=== PATIENT | male | born 1995 | race Hispanic/Latino ===

== ENCOUNTER 2025-07-12 23:37 | Emergency (ER) | payer OTHER ==
[~2025-07-12] VITALS: Ht 177.8 cm; Wt 145.1 kg
[2025-07-12] MEDS ORDERED: IOHEXOL 350 MG/ML 100ML INFUS..BTL IV ONE (23:49)
[2025-07-13 00:08] LABS: CREATININE 0.8 mg/dL (0.5-1.3); GLOMERULAR FILTR. RATE CALC 124.0 mL/min (>90); GLUCOSE,RANDOM 110.0 mg/dL (70-105); SODIUM SERUM 139.0 mmol/L (136-145); UREA NITROGEN, BLOOD 10.0 mg/dL (7-18)
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
[2025-07-13 00:30] LABS: CREATINE KINASE, TOTAL 688.0 U/L (21-232)
[2025-07-13 00:37] LABS: IMMATURE GRANULOCYTE ABSOLUTE 0.13 K/uL (0-1); NUCLEATED RED BLOOD CELLS 0.0 % (0.0-0.19); PLATELET COUNT (AUTO) 399 K/uL (130-400); RED BLOOD CELL COUNT(AUTO) 4.75 MIL/uL (4.50-6.20); RED CELL DISTRIBUTION WIDTH 13.9 % (11.0-15.5); WHITE BLOOD COUNT (AUTO) 10.9 K/uL (4.8-10.8)
[2025-07-13 00:48] LABS: INR 1.0 (0.85-1.15)
[2025-07-13 00:57] LABS: BAND NEUTROPHILS % (MANUAL) 1 % (0-2); EOSINOPHILS % (MANUAL) 3 % (1-6); LYMPHOCYTES % (MANUAL) 42 % (22-44); MAN.DIFF COMMENT-IMPRESSION MANUAL DIFFERENTIAL; MONOCYTES % (MANUAL) 10 % (2-9); SEGMENTED NEUTROPHILS % 44 % (40-70)
[2025-07-13 00:58] LABS: WBC MORPHOLOGY REACTIVE LYMPHS 1+
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
[2025-07-13] MEDS: 0.9%NACL 1000ML 1,000 ML IV ONE ×2 (01:33→01:55)
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
[2025-07-13] MEDS ORDERED: CEPH500B PO (02:42)
[2025-07-13 03:14] VITALS: BP 158/87; PULSE 92; RESP 16; TEMP 98.1; O2SAT 97
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
--- NOTE | 2025-07-13 06:59 | EKG ---
[facility] Test Date: 2025-07-12 Test Time: 23:36:27 Pat Name: JULIO SÁNCHEZ Department: ED Room: Gender: M Collection Team Lead: [id number] : 1995 Requested By: CANDACE FRANKLIN Order Number: [id number] Reading MD: Abdirashid Aguilar Measurements Intervals [place] Rate: 93 P: 69 MI: 159 QRS: 73 QRSD: 107 T: 18 QT: 322 QTc: 400 Interpretive Statements Sinus rhythm ST elev, probable normal early repol pattern No previous ECG available for comparison Electronically Signed On 07-13-2025 21:31:28 CDT by Abdirashid Aguilar Please click the below link to view image of tracing.
== END 2025-07-13 03:15 | disposition home or self-care (01) ==
LOC: EDH 23:37
DX: S46.911A Strain of unspecified muscle, fascia and tendon at shoulder and upper arm level, right arm, initial encounter (principal); S00.01XA Abrasion of scalp, initial encounter; J45.909 Unspecified asthma, uncomplicated; V89.2XXA Person injured in unspecified motor-vehicle accident, traffic, initial encounter; Y93.89 Activity, other specified; Y92.89 Other specified places as the place of occurrence of the external cause; Y99.8 Other external cause status
CPT/HCPCS: 99285; 70450; 82550; 83735; 84484; 80048; 85025; 85610; 85730; 36415; 72125; 93005; 71250; 96374; 96361; 96375; 73030; 74176; J7030; J2405; J2270; Q9967